=== PATIENT | female | born 1950 | race Asian ===

== ENCOUNTER → 2016-06-06 | Outpatient (CLI) | payer OTHER ==
[2016-06-06 10:36] LABS: BASO # 0.1 x10^3/uL (0.0-0.2); BASO % 1 % (0-3); EOS % 5 % (0-3); HEMOGLOBIN 13.6 g/dL (12.0-15.5); LYMPH # 1.8 x10^3/uL (1.0-4.8); LYMPH % 31 % (24-48); MEAN CORPUSCULAR HEMOGLOBIN 29 pg (25-35); MEAN CORPUSCULAR HGB CONC 33 g/dL (31-37); MEAN CORPUSCULAR VOLUME 89 fL (79-100); MONO % 7 % (0-9); NEUT % 56 % (31-73); PLATELET COUNT 243 x10^3/uL (140-400); RED BLOOD COUNT 4.61 x10^6/uL (3.50-5.40); WHITE BLOOD COUNT 5.7 x10^3/uL (4.0-11.0)
[2016-06-06 10:53] LABS: CALCIUM 9.3 mg/dL (8.5-10.1); CREATININE 0.9 mg/dL (0.6-1.0); GFR 62.8; POTASSIUM 4.3 mmol/L (3.5-5.1)
[2016-06-06 10:54] LABS: CHOLESTEROL/HDL RATIO 2.9
[2016-06-12 04:19] LABS: ALDOSTERONE 2.9 ng/dL (0.0-30.0)
== END | disposition home or self-care (01) ==
LOC: LAB 07:16
PROVIDERS: ATTEND Internal Medicine Cardiovascular Disease
DX: I10 Essential (primary) hypertension (principal)
CPT/HCPCS: 80048; 80061; 84443; 85027

== ENCOUNTER → 2016-06-19 | Outpatient (CLI) | payer OTHER ==
[~2016-06-19] VITALS: Ht 160 cm; Wt 53.5 kg
[~2016-06-19] MED LIST: LOSA25TA4 PO; METO25TA9 PO; REGADENOSON 0.4 MG/5 ML DISP.SYRIN. IV ONE
--- NOTE | 2016-06-19 11:24 | CARD ---
APPROVED REPORT EXAM: Two-dimensional and M-mode echocardiogram with Doppler and color Doppler. Other Information Quality : Average Rhythm : NSR INDICATION Dyspnea 2D DIMENSIONS RVDd2.4 (2.9-3.5cm)Left Atrium(2D)4.3 (1.6-4.0cm) IVSd0.8 (0.7-1.1cm)Aortic Root(2D)2.4 (2.0-3.7cm) LVDd4.8 (3.9-5.9cm)LVOT Diameter1.9 (1.8-2.4cm) PWd0.8 (0.7-1.1cm)LVDs2.8 (2.5-4.0cm) FS (%) 31.5 %SV77.6 ml LVEF(%)62.4 (>50%) Aortic Valve AoV Peak Anand.134.0cm/sAoV VTI27.8cm AO Peak GR.7.2mmHgLVOT Peak Anand.94.8cm/s LVOT VTI 20.15cmAO Mean GR.4mmHg HAN (VMAX)1.15ps6EAG (VTI)1.95cm2 Mitral Valve MV E Emhnpolk31.9cm/sMV DECEL WAOX242fw MV A Loigjvnp00.2cm/sMV E Mean Gr.1mmHg MV FJV43rcP/A Ratio1.1 MV A Rvkxmwsz793iyUHD (PHT)3.90cm2 TDI E/Lateral E'6.3E/Medial E'6.8 Pulmonary Valve PV Peak Yyokcqtz08.4cm/sPV Peak Grad.3mmHg RVOT VTI18.0cm Tricuspid Valve TR P. Zwyzcbjj343sa/sRAP AUOOSKIJ6bdZg TR Peak Gr.03rjSmEVES07biGe Pulmonary Vein S1 Rlbhfhse71.1cm/sD2 Kghzdspm28.1cm/s LEFT VENTRICLE The left ventricle is normal size. There is normal left ventricular wall thickness. Left ventricle sy stolic function is normal. The Ejection Fraction is 60-65%. There is normal LV segmental wall motion. The left ventricular diastolic function and filling is normal for age. RIGHT VENTRICLE The right ventricle is normal size. The right ventricular systolic function is normal. ATRIA The left atrium is borderline dilated. The right atrium size is normal. The interatrial septum is int act with no evidence for an atrial septal defect or patent foramen ovale as noted on 2-D or Doppler i maging. AORTIC VALVE The aortic valve is normal in structure and function. The aortic valve is trileaflet. Doppler and Col or Flow revealed no significant aortic regurgitation. There is no significant aortic valvular stenosi s. MITRAL VALVE The mitral valve is normal in structure and function. There is no mitral valve stenosis. Doppler and Color Flow revealed trace mitral regurgitation. TRICUSPID VALVE The tricuspid valve is normal in structure and function. Doppler and Color Flow revealed trace to mil d tricuspid regurgitation. The PA pressure was estimated at 27 mmHg. There is no tricuspid valve sten osis. PULMONIC VALVE The pulmonic valve is not well visualized. Doppler and Color Flow revealed no pulmonic valvular regur gitation. There is no pulmonic valvular stenosis. GREAT VESSELS The aortic root is normal in size. Normal pulmonary venous flow (Doppler). The IVC is normal in size and collapses >50% with inspiration. PERICARDIAL EFFUSION There is no evidence of significant pericardial effusion. Critical Notification Critical Value: No <Conclusion> Left ventricle systolic function is normal. The Ejection Fraction is 60-65%. There is normal LV segmental wall motion. The left atrium is borderline dilated. Trace mitral regurgitation. Trace to mild tricuspid regurgitation. The PA pressure was estimated at 27 mmHg. There is no evidence of significant pericardial effusion.
--- NOTE | 2016-06-19 13:52 | RAD ---
APPROVED REPORT Test Type: Pharmacological Stress Nurse/Tech: Veronique Christianson R.N. Test Indications: CALDERON Cardiac History: htn Medications: See Electronic Medical Record Medical History: See Electronic Medical Record Resting ECG: SB Resting Heart Rate: 50 bpm Resting Blood Pressure: 138/76mmHg Pretest Chest Pain: No chest pain Nurse/Tech Notes S1S2, lungs CTA Consent: The procedure was explained to the patient in lay terms. Informed consent was witnessed. [place] eout was entered into [employer]. History and Stress Test performed by RT Wm (R) (N) Pharm. Details Pharmacologic stress testing was performed using 0.4mg per 5ml of regadenoson given intravenously ove r 7-10 seconds. Stress Symptoms queasy feeling, SOB w/pressure in lt shoulder and a burning pain up left side of neck up into occipit al area scale 6/10. the shoulder discomfort resolved but the back of head continued to have burning h /a just decreased scale 4/10 POST EXERCISE Reason for Termination: Infusion complete Max HR: 87 bpm Max Blood Pressure: 140/74mmHg Blood Pressure response to exercise: Normal blood pressure response during stress. Heart Rate response to exercise: wnl Chest Pain: Yes. see above note Arrhythmia: No. ST Change: No. INTERPRETATION Stress EKG Conclusion: No evidence of vasodilator stress induced EKG changes. Imaging Protocol IMAGE PROTOCOL: Rest Tc-99m/stress Tc-99m 1 day Rest: Stress: Viability: Radiopharm.Tc99m NcsbzpopdQr51q Sestamibi Ywep59vFn 35mCi Img Date 06/19/2016 06/19/2016 Inj-Img Fqwf85eqb. 60min. Rest Admin Site:IV - Left AntecubitalAdministrator:DIANN Braun, ARRT (R)(N) Stress Admin Site: IV - Left AntecubitalAdministrator: RT Wm (R)(N) STRESS DATA End Diast. Vol.69.0mlAv. Heart Rate57.0bpm End Syst. Vol.17.0mlCO Index BSA0.0L/min Myocardial Ppze872.0gEject. Pjpjiwic93.0% Stress Rates Pk. Fill Rate2.49EDV/secLVtime Pk. Fill 310.87msec Pk. Empty Rate3.86ESV/secLVtime Pk. Dcklp782.11msec 06/03 Pk. Fill1.28EDV/sec Stress Scores Regional WT0.00Summed WT0.00 Regional WM0.00Summed WM0.00 The rest and stress images show normal perfusion, normal contraction and thickening. LV Perf. Quant 17 Seg. SSS0.00 17 Seg. SRS0.00 17 Seg. SDS0.00 Stress Defect Extent (% LAD)0.00Rest Defect Extent (% LAD)0.00Rev. Defect Extent (% LAD)0.00 Stress Defect Extent (% LCX) 0.00Rest Defect Extent (% LCX)0.00Rev. Defect Extent (% LCX)0.00 Stress Defect Extent (% RCA)0.00Rest Defect Extent (% RCA)0.00Rev. Defect Extent (% RCA)0.00 Stress Defect Extent (% MANISHA)0.00Rest Defect Extent (% MANISHA)0.00Rev. Defect Extent (% MANISHA)0.00 Other Information Quality:Good Risk Assessment: Low Risk Conclusion 1. No evidence of stress induced EKG changes. 2. Normal myocardial perfusion at stress/rest 3. Normal EF at >70% 4. Low risk study
== END | disposition home or self-care (01) ==
LOC: NM 07:39
PROVIDERS: ATTEND Internal Medicine Cardiovascular Disease
DX: R06.09 Other forms of dyspnea (principal); I10 Essential (primary) hypertension
CPT/HCPCS: 78452; 93017; 93306; 96374; 96376; A9500; J2785

== ENCOUNTER → 2016-06-25 | Outpatient (CLI) | payer OTHER ==
[~2016-06-25] MED LIST changes: -REGADENOSON 0.4 MG/5 ML DISP.SYRIN. IV ONE
--- NOTE | 2016-06-25 10:00 | RAD ---
Indication: Fibroids, follow-up. Comparison is made with prior pelvic ultrasound from 09/12/2014. The uterus measures 6.0 x 3.2 x 3.6 cm. Endometrium is 4 mm in thickness. There is a hypoechoic mass in the cervix which has increased in size since prior exam suggestive of a cervical fibroid. This measures 2.9 x 2.4 x 1.5 cm. This compares with 1.8 cm on prior. A second fibroid in the cervix is present measuring 1.1 x 1.3 x 1.0 cm. Small right uterine fibroid is noted measuring 1.5 cm. A left uterine fibroid measures 1.3 cm. These too have also increased in size since prior. The ovaries were not visualized. No free fluid is seen. Impression: Uterine fibroids, increased in size when compared with exam from 09/12/2014.
--- NOTE | 2016-06-25 10:00 | RAD ---
Indication: Gallbladder polyps. The pancreas is unremarkable. The liver demonstrates homogeneous echotexture. No discrete liver mass is detected. The main portal vein is patent and shows normal direction of flow. Extra hepatic bile duct remains slightly prominent at 8 mm compared with 7 mm on prior exam. No gallstones or sludge is identified. No gallbladder wall thickening or pericholecystic fluid is identified. There are 2 polyps noted within the gallbladder. The patient did have tenderness in the right upper quadrant. The right kidney is unremarkable. The left kidney contains a 2.5 cm cyst. There is cortical scarring present. The spleen is unremarkable. Aorta is borderline aneurysmal measuring 3 cm proximally. No ascites is identified. Impression: 1. No evidence of cholelithiasis or acute cholecystitis. There are gallbladder polyps. 2. Mild prominence to the extrahepatic bile duct at 8 mm. 3. Left renal cyst and cortical scarring. 4. Borderline abdominal aortic aneurysm measuring 3 cm.
== END | disposition home or self-care (01) ==
LOC: US 08:14
PROVIDERS: ATTEND Obstetrics & Gynecology
DX: D25.9 Leiomyoma of uterus, unspecified (principal); K82.4 Cholesterolosis of gallbladder; J38.1 Polyp of vocal cord and larynx
CPT/HCPCS: 76700; 76830; 76856

== ENCOUNTER → 2017-01-29 | Outpatient (CLI) | payer OTHER ==
--- NOTE | 2017-01-29 10:32 | RAD ---
CT scan of the abdomen and pelvis without contrast 01/29/2017 Clinical history: The patient swallowed a date seed 4 days ago with epigastric pain. Technique: Unenhanced, contiguous, 5 mm axial sections were obtained through the abdomen and pelvis. One or more of the following individualized dose reduction techniques were utilized for this study: 1. Automated exposure control. 2. Adjustment of the mA and/or kV according to patient size. 3. Use of iterative reconstruction technique. Findings: Comparison is made to an ultrasound of the abdomen dated 06/25/2016. Images through the lung bases demonstrate minimal dependent subsegmental atelectasis bilaterally. There is mild cardiomegaly. The unenhanced CT appearance of the liver, spleen, pancreas and adrenal glands are within normal limits. A 3 mm nonobstructing calculus is seen involving the midpole of the right kidney. A 2.5 cm rounded low-attenuation structure is seen projecting anteriorly from the superior left kidney. This corresponds to a cyst seen on the patient's ultrasound. Scarring is seen involving the superior/mid pole of the left kidney. The abdominal aorta is tortuous but tapers normally. The gallbladder is slightly contracted. No free fluid or free air is seen within the abdomen. There is no evidence of bowel obstruction. Air and stool is seen throughout the colon. No radiopaque foreign body is definitely seen. Scattered diverticula are seen involving the colon. No inflammatory changes are seen in the adjacent fat. Images through the pelvis demonstrate the urinary bladder distended with urine. Calcifications are seen within the pelvis consistent with phleboliths. No free fluid is seen. No adnexal mass is noted. Minimal S shaped curvature of the thoracolumbar spine is seen. Degenerative changes are seen involving the lower thoracic and mid and lower lumbar spine and both hips. Impression: No acute abnormality is seen.
== END | disposition home or self-care (01) ==
LOC: CT 09:42
PROVIDERS: ATTEND Internal Medicine
DX: T18.9XXD Foreign body of alimentary tract, part unspecified, subsequent encounter (principal); N20.0 Calculus of kidney
CPT/HCPCS: 74176

== ENCOUNTER → 2017-07-31 | Outpatient (CLI) | payer OTHER ==
[2017-07-31 10:19] LABS: ADD MAN DIFF? NO
[2017-07-31 10:37] LABS: BASO # 0.1 x10^3/uL (0.0-0.2); BASO % 2 % (0-3); EOS # 0.3 x10^3/uL (0.0-0.7); EOS % 5 % (0-3); HEMOGLOBIN 13.8 g/dL (12.0-15.5); LYMPH # 1.8 x10^3/uL (1.0-4.8); LYMPH % 33 % (24-48); MEAN CORPUSCULAR HEMOGLOBIN 30 pg (25-35); MEAN CORPUSCULAR HGB CONC 33 g/dL (31-37); MEAN CORPUSCULAR VOLUME 90 fL (79-100); MONO # 0.4 x10^3/uL (0.0-1.1); MONO % 8 % (0-9); NEUT # 2.9 x10^3uL (1.8-7.7); NEUT % 53 % (31-73); PLATELET COUNT 238 x10^3/uL (140-400); RED BLOOD COUNT 4.67 x10^6/uL (3.50-5.40); RED CELL DISTRIBUTION WIDTH 14.5 % (11.5-14.5); WHITE BLOOD COUNT 5.6 x10^3/uL (4.0-11.0)
[2017-07-31 10:41] LABS: ALBUMIN 3.9 g/dL (3.4-5.0); ALK PHOS 58 U/L (46-116); ALT (SGPT) 23 U/L (14-59); ANION GAP 8 (6-14); AST (SGOT) 21 U/L (15-37); BLOOD UREA NITROGEN 23 mg/dL (7-20); BUN/CREATININE RATIO 26 (6-20); CALCIUM 9.4 mg/dL (8.5-10.1); CARBON DIOXIDE 28 mmol/L (21-32); CHLORIDE 105 mmol/L (98-107); CHOLESTEROL 178 mg/dL (0-200); CREATININE 0.9 mg/dL (0.6-1.0); GFR 62.6; GLUCOSE 113 mg/dL (70-99); HDLC 64 mg/dL (40-60); LDLC 98 mg/dL (0-100); NON-HDL CHOLESTEROL 114 mg/dL (0-129); POTASSIUM 4.8 mmol/L (3.5-5.1); SODIUM 141 mmol/L (136-145); TOTAL BILIRUBIN 0.3 mg/dL (0.2-1.0); TRIGLYCERIDES 80 mg/dL (0-150); VLDLC 16 mg/dL (0-40)
[2017-07-31 10:42] LABS: CHOLESTEROL/HDL RATIO 2.8
[2017-07-31 10:51] LABS: THYROID STIM HORMONE (TSH) 1.378 uIU/mL (0.358-3.74)
[2017-07-31 10:57] LABS: VITAMIN-B12 1035 pg/mL (247-911)
[2017-07-31 17:16] LABS: THYROXINE 6.7 ug/dL (4.5-12.0)
== END | disposition home or self-care (01) ==
LOC: LAB 10:02
DX: Z13.1 Encounter for screening for diabetes mellitus (principal); I10 Essential (primary) hypertension; E78.4 Other hyperlipidemia; I42.9 Cardiomyopathy, unspecified; I47.1 Supraventricular tachycardia; M85.80 Other specified disorders of bone density and structure, unspecified site; M27.2 Inflammatory conditions of jaws; D25.9 Leiomyoma of uterus, unspecified; R53.83 Other fatigue; R10.11 Right upper quadrant pain
CPT/HCPCS: 36415; 80053; 80061; 82306; 82607; 84436; 84443; 85025

== ENCOUNTER → 2018-05-20 | Outpatient (CLI) | payer OTHER ==
[~2018-05-20] MED LIST changes: -LOSA25TA4 PO; +LOSA25TA54 PO; +METO-239 PO; -METO25TA9 PO
[2018-05-20 10:27] LABS: BASO # 0.1 x10^3/uL (0.0-0.2); BASO % 2 % (0-3); EOS # 0.3 x10^3/uL (0.0-0.7); EOS % 4 % (0-3); HEMATOCRIT 41.1 % (36.0-47.0); HEMOGLOBIN 14.1 g/dL (12.0-15.5); LYMPH # 1.9 x10^3/uL (1.0-4.8); LYMPH % 31 % (24-48); MEAN CORPUSCULAR HEMOGLOBIN 31 pg (25-35); MEAN CORPUSCULAR HGB CONC 34 g/dL (31-37); MEAN CORPUSCULAR VOLUME 90 fL (79-100); MONO # 0.5 x10^3/uL (0.0-1.1); MONO % 7 % (0-9); NEUT # 3.5 x10^3uL (1.8-7.7); NEUT % 56 % (31-73); PLATELET COUNT 247 x10^3/uL (140-400); RED BLOOD COUNT 4.56 x10^6/uL (3.50-5.40); RED CELL DISTRIBUTION WIDTH 14.3 % (11.5-14.5); WHITE BLOOD COUNT 6.3 x10^3/uL (4.0-11.0)
[2018-05-20 10:56] LABS: CALCIUM 9.5 mg/dL (8.5-10.1); CREATININE 0.9 mg/dL (0.6-1.0); GFR 62.5
[2018-05-20 11:01] LABS: CHOLESTEROL/HDL RATIO 3.1
--- NOTE | 2018-05-20 11:27 | CARD ---
MR#: [id number] Date of Study: 05/20/2018 Ordering Physician: LUANA GARCIA, Referring Physician: LUANA GARCIA Tech: Leyla Gonzalez RDCS APPROVED REPORT EXAM: Two-dimensional and M-mode echocardiogram with Doppler and color Doppler. Other Information Quality : Good INDICATION Hypertension/HCVD 2D DIMENSIONS RVDd2.8 (2.9-3.5cm)Left Atrium(2D)4.0 (1.6-4.0cm) IVSd0.8 (0.7-1.1cm)Aortic Root(2D)2.6 (2.0-3.7cm) LVDd4.2 (3.9-5.9cm)LVOT Diameter1.8 (1.8-2.4cm) PWd0.9 (0.7-1.1cm)LVDs2.5 (2.5-4.0cm) FS (%) 30.0 %SV57.1 ml LVEF(%)60.0 (>50%) Aortic Valve AoV Peak Anand.137.5cm/sAoV VTI29.0cm AO Peak GR.7.6mmHgLVOT Peak Anand.106.2cm/s AO Mean GR.4mmHgAVA (VMAX)1.86cm2 HAN (VTI)2.10cm2 Mitral Valve MV E Hqpddtdz89.6cm/sMV DECEL DTGA316em MV A Hvywvbvt39.3cm/sE/A Ratio1.3 Tricuspid Valve TR P. Sangnuap850gn/sRAP GBCIPGLV9tiVd TR Peak Gr.05utWmPQRI15umEk Pulmonary Vein S1 Mksmygzl86.6cm/sD2 Hlmlahfh96.0cm/s LEFT VENTRICLE The left ventricle is normal size. There is normal left ventricular wall thickness. The left ventricu lar systolic function is normal. The Ejection Fraction is 55-60%. There is normal LV segmental wall m otion. RIGHT VENTRICLE The right ventricle is normal size. The right ventricular systolic function is normal. ATRIA The left atrium is mildly dilated. The right atrium size is normal. The interatrial septum is intact with no evidence for an atrial septal defect or patent foramen ovale as noted on 2-D or Doppler imagi ng. AORTIC VALVE The aortic valve is calcified but opens well. Doppler and Color Flow revealed no significant aortic r egurgitation. There is no significant aortic valvular stenosis. MITRAL VALVE The mitral valve is calcified but opens well. There is no evidence of mitral valve prolapse. There is no mitral valve stenosis. Doppler and Color-flow revealed mild mitral regurgitation. TRICUSPID VALVE The tricuspid valve is normal in structure and function. Doppler and Color Flow revealed mild tricusp id regurgitation. The PA pressure was estimated at 42 mmHg. There is no tricuspid valve stenosis. PULMONIC VALVE The pulmonic valve is not well visualized. Doppler and Color Flow revealed no pulmonic valvular regur gitation. There is no pulmonic valvular stenosis. GREAT VESSELS The aortic root is normal in size. The ascending aorta is normal in size. The IVC is normal in size a nd collapses >50% with inspiration. PERICARDIAL EFFUSION There is no evidence of significant pericardial effusion. Critical Notification Critical Value: No <Conclusion> The left ventricular systolic function is normal. The Ejection Fraction is 55-60%. There is normal LV segmental wall motion. The left atrium is mildly dilated. Mild mitral regurgitation. Mild tricuspid regurgitation. The PA pressure was estimated at 42 mmHg. There is no evidence of significant pericardial effusion. Signed by : Luana Garcia, Electronically Approved : 05/20/2018 11:26:43
--- NOTE | 2018-05-21 15:29 | RAD ---
Pelvic ultrasound Clinical Indication: Pelvic pain, history of fibroids.. COMPARISON: Images from June 25, 2016 although that report is not available.. Uterus measures 7.1 cm x 3.0 cm x 2.5 cm. Hypoechoic nodule measuring 2 cm identified within the lower uterine segment. Another hypoechoic lesion in the posterior uterus measures 14 mm diameter. Endometrial stripe measures 2 mm. The right and left ovaries are not visualized. No free fluid identified. IMPRESSION: 1. 2 uterine masses are identified, would most commonly represent fibroids. One measures slightly larger although that could be due to difference in scan, the overall appearance is fairly similar. 2. Ovaries are not visualized. Electronically signed by: Magdi Huizar MD (05/21/2018 3:25 PM) [id number]
--- NOTE | 2018-05-21 15:35 | RAD ---
Complete abdominal ultrasound History: Abdominal pain.. Findings: Aorta: No evidence of aneurysm. Inferior vena cava: Patent Pancreas: Unremarkable Liver: Unremarkable and not enlarged Gallbladder: Nodular structure at the anterior gallbladder wall measures about 5 mm, could represent a noncalcified adherent stone or a polyp. No definite shadowing mobile calculus. No significant wall thickening. Bile ducts: No evidence of dilatation Right kidney: 10.5 cm length. Echogenic structure within the midpole, suspicious for a calculus. No hydronephrosis. Left kidney: 9.0 cm length. Poorly visualized due to bowel gas, there appear to be a couple of cysts largest measuring 2.9 cm. Spleen: Poorly visualized, not grossly enlarged. Impression: 1. Nodular structure at the anterior gallbladder wall, most likely a polyp. Adherent noncalcified stone is less likely. 2. Suspect nonobstructive right renal calculus. 3. Poorly visualized left kidney due to bowel gas, there appear to be a couple of cysts. Electronically signed by: Magdi Huizar MD (05/21/2018 3:31 PM) [facility]
== END | disposition home or self-care (01) ==
LOC: ECHO 09:57
PROVIDERS: ATTEND Internal Medicine Cardiovascular Disease
DX: I08.1 Rheumatic disorders of both mitral and tricuspid valves (principal); N85.8 Other specified noninflammatory disorders of uterus; I11.9 Hypertensive heart disease without heart failure; R10.84 Generalized abdominal pain
CPT/HCPCS: 36415; 76700; 76856; 80048; 80061; 82306; 84443; 85025; 93306

== ENCOUNTER → 2018-09-20 | Outpatient (CLI) | payer OTHER ==
--- NOTE | 2018-09-20 17:40 | RAD ---
CHEST PA LATERAL Clinical indications: SHORT OF AIR comparison: None available. Findings: Small granuloma of the right upper lobe is seen. No acute lung infiltrate or pleural effusion or pulmonary edema or lung mass or pneumothorax is seen. Mild cardiomegaly is evident. The pulmonary vasculature, mediastinum and both prasanth are unremarkable. There is a mild compression deformity of what appears to be L1. This was seen on a previous CT study of the abdomen and pelvis dated January 19, 2017. Impression: No acute infiltrate. Mild cardiomegaly. Electronically signed by: Farooq Robin MD (09/20/2018 5:37 PM) [place] [id number]
== END | disposition home or self-care (01) ==
LOC: RAD 12:45
PROVIDERS: ATTEND Internal Medicine Critical Care Medicine
DX: I51.7 Cardiomegaly (principal)
CPT/HCPCS: 71046

== ENCOUNTER → 2018-12-07 | Outpatient (CLI) | payer OTHER ==
--- NOTE | 2018-12-07 16:30 | RAD ---
PQRS Compliance Statement: One or more of the following individualized dose reduction techniques were utilized for this examination: 1. Automated exposure control 2. Adjustment of the mA and/or kV according to patient size 3. Use of iterative reconstruction technique CT chest without contrast December 07, 2018 INDICATION: Pulmonary hypertension. COMPARISON: Chest radiograph September 20, 2018 TECHNIQUE: Multiple axial CT images of the chest were obtained without intravenous contrast. Coronal and sagittal reformats are provided. FINDINGS: Thyroid gland is normal in appearance. No pathologically enlarged thoracic lymph nodes are identified. Ascending thoracic aorta is normal in caliber measuring 3.3 cm. Main pulmonary artery measures 2.0 cm. Right pulmonary artery measures 2.2 cm. Left pulmonary artery measures 2.2 cm. Heart size is within normal limits. Calcified right hilar lymph nodes are identified. There is a 4 mm calcified granuloma in the right upper lobe. No pleural effusions. No pulmonary vascular congestion or pneumothorax. Visualized portions of the liver, bilateral adrenal glands, spleen, pancreas and gallbladder appear normal. There is focal cortical atrophy involving the medial interpolar left kidney. No suspicious osseous abnormality is identified. IMPRESSION: No structural abnormality involving the cardiac and vascular structures. Specifically, pulmonary arteries are nondilated. Right hilar calcified lymphadenopathy and 4 mm calcified right upper lobe nodule likely represent sequela of prior granulomatous exposure. Electronically signed by: Krystle Castellanos MD (12/07/2018 4:27 PM) [id number]
== END | disposition home or self-care (01) ==
LOC: CT 15:55
PROVIDERS: ATTEND Internal Medicine Critical Care Medicine
DX: J98.4 Other disorders of lung (principal); J84.10 Pulmonary fibrosis, unspecified; R91.1 Solitary pulmonary nodule; R59.0 Localized enlarged lymph nodes; G31.89 Other specified degenerative diseases of nervous system; I27.20 Pulmonary hypertension, unspecified
CPT/HCPCS: 71250

== ENCOUNTER → 2018-12-16 | Outpatient (CLI) | payer OTHER ==
--- NOTE | 2018-12-16 10:01 | CARD ---
MR#: [id number] Date of Study: 12/16/2018 Ordering Physician: JESUS WHITTEN, Referring Physician: JESUS WHITTEN Tech: Leyla Gonzalez RDCS APPROVED REPORT EXAM: Two-dimensional and M-mode echocardiogram with Doppler and color Doppler. Other Information Quality : Excellent INDICATION Pulmonary Hypertention 2D DIMENSIONS RVDd2.4 (2.9-3.5cm)Left Atrium(2D)4.0 (1.6-4.0cm) IVSd0.7 (0.7-1.1cm)Aortic Root(2D)2.5 (2.0-3.7cm) LVDd4.8 (3.9-5.9cm)LVOT Diameter1.8 (1.8-2.4cm) PWd0.7 (0.7-1.1cm)LVDs3.4 (2.5-4.0cm) FS (%) 29.0 %SV58.9 ml LVEF(%)55.6 (>50%) Aortic Valve AoV Peak Anand.123.4cm/sAoV VTI26.2cm AO Peak GR.6.1mmHgLVOT Peak Anand.102.3cm/s AO Mean GR.4mmHgAVA (VMAX)2.11cm2 HAN (VTI)2.10cm2 Mitral Valve MV E Vcrautsh61.3cm/sMV DECEL WOVY511sf MV A Jsiwcxij06.3cm/sE/A Ratio1.5 Tricuspid Valve TR P. Vfhkbfdb303em/sRAP NUIEIOEB7xgMy TR Peak Gr.49uoRmEJLT39skZj Pulmonary Vein S1 Pmfiumrd73.0cm/sD2 Kocgdffb02.4cm/s LEFT VENTRICLE The left ventricle is normal size. There is normal left ventricular wall thickness. The left ventricu lar systolic function is normal. The Ejection Fraction is 55-60%. There is normal LV segmental wall m otion. Transmitral Doppler flow pattern is Grade II-pseudonormal filling dynamics. RIGHT VENTRICLE The right ventricle is normal size. The right ventricular systolic function is normal. ATRIA The left atrium is mildly dilated. The right atrium size is normal. The interatrial septum is intact with no evidence for an atrial septal defect or patent foramen ovale as noted on 2-D or Doppler imagi ng. AORTIC VALVE The aortic valve is calcified but opens well. Doppler and Color Flow revealed trace aortic regurgitat ion. There is no significant aortic valvular stenosis. MITRAL VALVE The mitral valve is normal in structure and function. There is no evidence of mitral valve prolapse. There is no mitral valve stenosis. Doppler and Color-flow revealed mild mitral regurgitation. TRICUSPID VALVE The tricuspid valve is normal in structure and function. Doppler and Color Flow revealed mild tricusp id regurgitation. There is mild pulmonary hypertension. The PA pressure was estimated at 36 mmHg. The re is no tricuspid valve stenosis. PULMONIC VALVE The pulmonary valve is normal in structure and function. Doppler and Color Flow revealed trace pulmon ic valvular regurgitation. There is no pulmonic valvular stenosis. GREAT VESSELS The aortic root is normal in size. The ascending aorta is normal in size. The IVC is normal in size a nd collapses >50% with inspiration. PERICARDIAL EFFUSION There is no evidence of significant pericardial effusion. Critical Notification Critical Value: No <Conclusion> The left ventricular systolic function is normal. The Ejection Fraction is 55-60%. There is normal LV segmental wall motion. Transmitral Doppler flow pattern is Grade II-pseudonormal filling dynamics. The left atrium is mildly dilated. Mild mitral regurgitation. Mild tricuspid regurgitation. There is mild pulmonary hypertension. The PA pressure was estimated at 36 mmHg. There is no evidence of significant pericardial effusion. Signed by : Memo Salazar, Electronically Approved : 12/16/2018 10:01:37
== END | disposition home or self-care (01) ==
LOC: ECHO 09:01
PROVIDERS: ATTEND Internal Medicine Critical Care Medicine
DX: I08.3 Combined rheumatic disorders of mitral, aortic and tricuspid valves (principal); I27.20 Pulmonary hypertension, unspecified
CPT/HCPCS: 93306

== ENCOUNTER → 2019-05-23 | Outpatient (CLI) | payer OTHER ==
[2019-05-23 17:23] LABS: BASO # 0.1 x10^3/uL (0.0-0.2); BASO % 1 % (0-3); EOS # 0.2 x10^3/uL (0.0-0.7); EOS % 3 % (0-3); HEMOGLOBIN 13.6 g/dL (12.0-15.5); LYMPH # 1.5 x10^3/uL (1.0-4.8); LYMPH % 19 % (24-48); MEAN CORPUSCULAR HEMOGLOBIN 30 pg (25-35); MEAN CORPUSCULAR HGB CONC 33 g/dL (31-37); MEAN CORPUSCULAR VOLUME 90 fL (79-100); MONO # 0.5 x10^3/uL (0.0-1.1); MONO % 7 % (0-9); NEUT # 5.6 x10^3/uL (1.8-7.7); NEUT % 72 % (31-73); PLATELET COUNT 237 x10^3/uL (140-400); RED BLOOD COUNT 4.54 x10^6/uL (3.50-5.40); RED CELL DISTRIBUTION WIDTH 14.3 % (11.5-14.5); WHITE BLOOD COUNT 7.9 x10^3/uL (4.0-11.0)
[2019-05-23 17:39] LABS: C-REACTIVE PROTEIN 1.5 mg/L (0-3.3); CALCIUM 9.2 mg/dL (8.5-10.1); CREATININE 0.9 mg/dL (0.6-1.0); GFR 62.3; POTASSIUM 4.1 mmol/L (3.5-5.1); TOTAL BILIRUBIN 0.6 mg/dL (0.2-1.0)
[2019-05-23 19:19] LABS: BILIRUBIN,URINE NEGATIVE (NEG); CLARITY,URINE CLEAR; COLOR,URINE YELLOW; NITRITE,URINE NEGATIVE (NEG); PH,URINE 5.5; PROTEIN,URINE NEGATIVE (NEG-TRACE); UROBILINOGEN,URINE 0.2 mg/dL (0.2 mg/dL)
[2019-05-23 19:33] LABS: SQUAMOUS EPITHELIAL CELL,UR FEW /LPF
[2019-05-23 19:34] LABS: BACTERIA,URINE 0 /HPF (0-FEW); RBC,URINE 0 /HPF (0-2)
== END | disposition home or self-care (01) ==
LOC: LAB 16:37
PROVIDERS: ATTEND Physical Medicine & Rehabilitation
DX: I27.20 Pulmonary hypertension, unspecified (principal); Z79.899 Other long term (current) drug therapy
CPT/HCPCS: 36415; 80053; 81001; 84443; 85025; 85651; 86140

== ENCOUNTER → 2019-11-30 | Outpatient (CLI) | payer OTHER ==
--- NOTE | 2019-12-01 11:25 | SLEEP ---
DATE OF STUDY: HOME SLEEP STUDY REFERRING PHYSICIAN: Markie Valdez MD PRIMARY CARE PHYSICIAN: Slime Mcknight MD The patient is 69 years old who weighs 117 pounds with a BMI of 21.4. The patient underwent home sleep study performed at [facility]. Total recording time was 420 minutes. During the night study, the patient had 5 obstructive apneas, no central apneas, 22 mixed apneas and 19 hypopneas. The patient's AHI was 8.3 per hour. Supine sleep was not recorded. Nocturnal oximetry study revealed an average oxygen saturation of 94% with lowest of 84%. Only 3.7 minutes were spent in oxygen saturation less than 90%. Mean heart rate was 54 beats per minute. The patient did have respiratory effort related arousals and signs of upper airway resistance syndrome throughout the night. IMPRESSION: 1. Mild obstructive sleep apnea at an AHI of 8.3 per hour. The patient did have signs of upper airway resistance syndrome throughout the night of the study. 2. No clinically significant nocturnal hypoxia. RECOMMENDATIONS: 1. The patient has mild ANUPAM. If the patient is clinically symptomatic or has other comorbid conditions, then consider treatment of sleep apnea with either CPAP versus oral appliance. 2. Once the patient is optimally treated, then follow up in 4-6 weeks to assess compliance and to document clinical improvement. 3. Avoid EIGHT SECTION BLOWER depressants. 4. Cautioned regarding driving until symptoms of sleep apnea resolve with above recommendations. MARKIE VALDEZ MD DR: CONNER/yolette JOB#: [id number] / [id number] [facility] SLIME MCKNIGHT MD
== END ==
LOC: RT 11:19
PROVIDERS: ATTEND Internal Medicine Critical Care Medicine
DX: G47.33 Obstructive sleep apnea (adult) (pediatric) (principal)
CPT/HCPCS: G0399

== ENCOUNTER → 2019-12-06 | Outpatient (CLI) | payer OTHER ==
[2019-12-06 10:36] LABS: BASO # 0.1 x10^3/uL (0.0-0.2); BASO % 1 % (0-3); EOS # 0.2 x10^3/uL (0.0-0.7); EOS % 3 % (0-3); HEMATOCRIT 38.1 % (36.0-47.0); HEMOGLOBIN 13.1 g/dL (12.0-15.5); LYMPH # 1.5 x10^3/uL (1.0-4.8); LYMPH % 24 % (24-48); MEAN CORPUSCULAR HEMOGLOBIN 31 pg (25-35); MEAN CORPUSCULAR HGB CONC 34 g/dL (31-37); MEAN CORPUSCULAR VOLUME 90 fL (79-100); MONO # 0.5 x10^3/uL (0.0-1.1); MONO % 8 % (0-9); NEUT # 3.9 x10^3/uL (1.8-7.7); NEUT % 64 % (31-73); PLATELET COUNT 255 x10^3/uL (140-400); RED BLOOD COUNT 4.22 x10^6/uL (3.50-5.40); RED CELL DISTRIBUTION WIDTH 13.3 % (11.5-14.5); WHITE BLOOD COUNT 6.1 x10^3/uL (4.0-11.0)
[2019-12-06 10:43] LABS: BILIRUBIN,URINE NEGATIVE (NEG); CLARITY,URINE CLEAR; COLOR,URINE YELLOW; NITRITE,URINE NEGATIVE (NEG); PROTEIN,URINE NEGATIVE (NEG-TRACE); UROBILINOGEN,URINE 0.2 mg/dL (0.2 mg/dL)
[2019-12-06 10:51] LABS: BACTERIA,URINE 0 /HPF (0-FEW); RBC,URINE 0 /HPF (0-2); SQUAMOUS EPITHELIAL CELL,UR FEW /LPF; WBC,URINE OCC /HPF (0-4)
[2019-12-06 10:59] LABS: ALBUMIN 3.7 g/dL (3.4-5.0); CALCIUM 8.9 mg/dL (8.5-10.1); GFR 55.1; POTASSIUM 4.2 mmol/L (3.5-5.1); TOTAL BILIRUBIN 0.4 mg/dL (0.2-1.0); TOTAL PROTEIN 7.4 g/dL (6.4-8.2)
[2019-12-06 11:05] LABS: CHOLESTEROL/HDL RATIO 3.1
--- NOTE | 2019-12-06 15:24 | RAD ---
PROCEDURE: FOOT RIGHT 3V STUDY DATE: 12/06/2019 CLINICAL INDICATION / HISTORY: Reason: BONY PROMINENCE RIGHT FOOT. / Spl. Instructions: / History: . TECHNIQUE: AP, lateral and oblique views of the right foot. COMPARISON: None FINDINGS: No fracture or dislocation is identified. The bone density is normal. The joint space widths are maintained, and there are no erosions to suggest an inflammatory arthropathy. No soft tissue abnormality is seen. IMPRESSION: No acute osseous abnormality. No mass. Bony prominence likely reflects undulation of the tarsal bones. MRI could evaluate further if malalignment is clinically suspected.. Electronically signed by: Linwood Hilliard MD (12/06/2019 3:21 PM) [id number]
== END | disposition home or self-care (01) ==
LOC: RAD 09:59
PROVIDERS: ATTEND Internal Medicine
DX: Z00.00 Encounter for general adult medical examination without abnormal findings (principal); D50.8 Other iron deficiency anemias; E55.9 Vitamin D deficiency, unspecified; M89.8X7 Other specified disorders of bone, ankle and foot
CPT/HCPCS: 36415; 73630; 80053; 80061; 81001; 82306; 82607; 82746; 83036; 84443; 85025; 87086

== ENCOUNTER → 2020-01-13 | Outpatient (CLI) | payer OTHER ==
--- NOTE | 2020-01-13 09:22 | RAD ---
ABDOMEN COMPLETE History: Reason: GB POLYP, KIDNEY STONES / Spl. Instructions: / History: Comparison: May 21, 2018 Technique: Sonographic examination of the abdomen was performed and multiple grayscale and color Doppler static images were obtained. Findings: Liver demonstrates normal echogenicity. The liver measures 13 cm. Portal flow is patent. Common bile duct measures 6 mm in diameter. Small gallbladder polyp measures 4 mm. No cholelithiasis. No gallbladder wall thickening. Visualized pancreas is homogeneous. The right kidney measures 10.5 x 4.9 x 4.2 cm. No hydronephrosis. Nonobstructing right renal calculus measures 0.9 cm. The left kidney measures 9.2 x 3.4 x 5.1 cm. No hydronephrosis. Not well evaluated due to overlying structures. Poorly characterize small left renal cyst. The spleen measures 8.2 cm. Not well seen due to overlying structures. Visualized portions of the abdominal aorta and IVC are normal. IMPRESSION: 1. Stable gallbladder polyp. 2. Nonobstructing right renal calculus. No hydronephrosis. 3. Left kidney not well evaluated with small cyst, unchanged. Electronically signed by: Qasim Stanley DO (01/13/2020 9:19 AM) [id number]
--- NOTE | 2020-01-13 09:24 | RAD ---
PELVIS COMPLETE History: Reason: UTERINE FIBROIDS / Spl. Instructions: / History: Comparison: May 21, 2018. Technique: Grayscale and color Doppler imaging of the pelvis was performed using transabdominal technique. Findings: The uterus measures 6.4 x 3.9 x 3.1 cm. Solid, hypoechoic mass within the posterior myometrium measures 1.2 x 1.0 x 0.9 cm, similar compared to prior. Additional hypoechoic mass within the lower uterine segment measures 2.6 x 1.9 x 2.0 cm, increased compared to prior. The endometrial stripe measures 1.6 mm. Bilateral ovaries not identified due to positioning and overlying structures. No adnexal masses are seen. IMPRESSION: 1. Two uterine masses with the mass in the lower uterine segment increased in size compared to prior. Findings likely represent fibroids. Electronically signed by: Qasim Stanley DO (01/13/2020 9:22 AM) [id number]
== END | disposition home or self-care (01) ==
LOC: US 07:43
PROVIDERS: ATTEND Internal Medicine
DX: N28.1 Cyst of kidney, acquired (principal); N20.0 Calculus of kidney; K82.4 Cholesterolosis of gallbladder; D25.1 Intramural leiomyoma of uterus; N85.9 Noninflammatory disorder of uterus, unspecified
CPT/HCPCS: 76700; 76856

== ENCOUNTER → 2020-01-16 | Outpatient (CLI) | payer OTHER ==
--- NOTE | 2020-01-16 12:26 | KCIC ---
EXAM: Cervical spine MRI without contrast. HISTORY: Cervical radiculitis. TECHNIQUE: Multiplanar, multisequence magnetic resonance imaging of the cervical spine was performed without contrast. COMPARISON: None. FINDINGS: There is mild cervical kyphosis and cervical curvature due to thoracic scoliosis. There is mild anterolisthesis of C2 on C3 and T1 on T2 and T2 on T3. There is degenerative endplate remodeling at multiple levels. There is disc space narrowing predominantly at C5-C6. There are few incidental osseous hemangiomas. There is no suspicious osseous lesion. There is no acute or subacute fracture. The skull base and visualized portions the brain are unremarkable. There are few tiny dilated nerve root sheath cysts/perineural cysts at the upper thoracic levels, of no clinical significance. There are tiny foci of T2 hyperintensity within the dorsal aspect of the cervical spinal cord at C3 which are likely artifactual rather than due to myelomalacia. No convincing spinal cord lesion is seen. At C2-C3, there is mild bilateral facet arthropathy. There is no stenosis. At C3-C4, there is a disc bulge and endplate remodeling. There is mild bilateral facet arthropathy. There is uncovertebral arthropathy. There is mild left foraminal stenosis. There is slight deformation of the cervical spinal cord without significant central canal stenosis. At C4-C5, there is a right paracentral disc protrusion superimposed on a disc bulge and endplate osteophytosis. There is mild right and moderate left facet arthropathy. There is uncovertebral arthropathy. There is deformation of the right ventral aspect of the spinal cord and mild central canal stenosis measuring 9.1 mm in anterior posterior dimension. At C5-C6, there is a left posterior lateral disc osteophyte complex superimposed on a disc bulge and endplate osteophytosis. There is mild bilateral facet arthropathy. There is uncovertebral arthropathy. There is moderate left foraminal stenosis. There is mild central canal stenosis measuring 8.3 mm in anterior posterior dimension. At C6-C7, there is a disc bulge and endplate remodeling. There is uncovertebral arthropathy. There is mild left foraminal stenosis. IMPRESSION: 1. Multilevel degenerative change involving the cervical spine, described in detail above. This is associated with mild left foraminal stenosis at C3-C4, mild central canal stenosis at C4-C5, moderate left foraminal and mild central canal stenosis at C5-C6 and mild left foraminal stenosis at C6-C7. 2. No acute finding. Electronically signed by: Alaina Sy MD (01/16/2020 12:23 PM) [id number]
== END | disposition home or self-care (01) ==
LOC: KCIC MRI 11:00
PROVIDERS: ATTEND Physical Medicine & Rehabilitation
DX: M99.51 Intervertebral disc stenosis of neural canal of cervical region (principal); M47.812 Spondylosis without myelopathy or radiculopathy, cervical region; M41.82 Other forms of scoliosis, cervical region; M41.84 Other forms of scoliosis, thoracic region; M43.12 Spondylolisthesis, cervical region; M43.14 Spondylolisthesis, thoracic region; M25.78 Osteophyte, vertebrae
CPT/HCPCS: 72141